=== PATIENT | male | born 1995 | race Asian ===

== ENCOUNTER 2023-07-10 17:43 | Emergency (ER) | payer OTHER ==
[2023-07-10 18:06] VITALS: BP 135/76; O2SAT 100
--- NOTE | 2023-07-10 18:41 | ED Physician Documentation ---
History of Present Illness - Stated complaint Stated Complaint: TOOTH ACHE - Chief complaint Chief Complaint: Heent - History obtained from History obtained from: Patient - History of Present Illness Pain level max: 9 Pain level now: 9 - Additonal information Additional information: Patient is a 27-year-old male who presents to the emergency department with a tooth ache worsening over the past several days. He states that he originally cracked the right upper molar about a month ago. Has an appointment with his dentist this week. He states that the pain started to increase about 2 days ago. No facial swelling. No fevers. No chills. No vomiting. No redness. No drainage. Worse with eating and drinking, nothing makes it better. Review of Systems Constitutional: denies: Fever, Chills GI: denies: Vomiting PD PAST MEDICAL HISTORY - Past Medical History Past Medical History: No - Past Surgical History Past Surgical History: Yes - Present Medications Home Medications: Ambulatory Orders Medication Instructions Recorded Confirmed HYDROcod/ACETAM 5/325 [[place] 5/325] 1 - 2 ea PO Q6H PRN #14 tablet 07/10/23 Penicillin V Potassium 500 mg PO Q6HR #40 tablet 07/10/23 - Allergies Allergies/Adverse Reactions: Allergies Allergy/AdvReac Type Severity Reaction Status Date / Time No Known Drug Allergies Allergy Verified 07/10/23 18:04 - Social History Does the pt smoke?: No Smoking Status: Never smoker Does the pt drink ETOH?: Yes ETOH Use: Liquor Does the pt have substance abuse?: No PD ED PE NORMAL - Vitals Vital signs reviewed: Yes - General General: Alert and oriented X 3, No acute distress - HEENT HEENT: Moist mucous membranes, Other (Right upper molar does show dental caries and a small area of cracked tooth. No gingival swelling. No abscess. Normal phonation. No trismus. No facial swelling. Otherwise normal intraoral exam) - Neck Neck: Supple, no meningeal sign - Cardiac Cardiac: RRR, Strong equal pulses - Respiratory Respiratory: No respiratory distress, Clear bilaterally - Derm Derm: Warm and dry - Neuro Neuro: Alert and oriented X 3 Results - Vitals Vitals: Vital Signs - 24 hr 07/10/23 17:56 Temperature 37.0 C Heart Rate 69 Respiratory 18 Rate Blood Pressure 135/76 H O2 Saturation 100 Oxygen O2 Source Room air PD Medical Decision Making - ED course Complexity details: reviewed results, re-evaluated patient, considered differential, d/w patient ED course: Patient with dental caries. Cavitt was placed over the open tooth. We will place on antibiotics and pain medications for home. No evidence of abscess, facial cellulitis. Normal phonation. No trismus. Patient will follow-up with his dentist this week. Patient counseled regarding signs and symptoms for which I believe and urgent re-evaluation would be necessary. Patient with good understanding of and agreement to plan and is comfortable going home at this time This document was made in part using voice recognition software. While efforts are made to proofread this document, sound alike and grammatical errors may occur. Departure - Departure Disposition: Home, Self Care Clinical Impression: Pain due to dental caries Condition: Good Instructions: ED Tooth Pain Follow-Up: JOSE SLATER MD [Primary Care Provider] - Prescriptions: Penicillin V Potassium 500 mg PO Q6HR #40 tablet HYDROcod/ACETAM 5/325 [[place] 5/325] 1 - 2 ea PO Q6H PRN #14 tablet PRN Reason: Pain Comments: Your prescriptions were sent to [facility] in [place]. Please take all antibiotics until gone. You can use the pain medication as needed for pain as well. The cavit can be placed over the open tooth which will often help with the pain. Please follow-up with your dentist as scheduled. Please return if you worsen. I am prescribing a short course of narcotic pain medication for you. These are potentially dangerous and addictive medications that should be used carefully. These medications may constipate you. Take an mqjp-fae-rjikezl stool softener (docusate) twice daily with plenty of water while taking these medications. If you go 24 hours without a bowel movement, take [id number] miralax, per package instructions. Do not drink or drive while taking these medications. If you received narcotic or sedating medications while in the emergency department, do not drive for 24 hours. Store this medication in a safe, secure place and out of reach of children. It is a violation of federal law to give or sell this medication to another person or to use in a manner other than prescribed. The ED will not refill narcotic prescriptions, including prescriptions lost or stolen. To dispose of unwanted medications: 1. [facility] at [address] in [place] has a medication drop box. They accept prescription medications (in pill form) Wednesday through Wednesday 9:00 a.m. to 5:00 p.m. 2. The [facility] [employer] accepts prescription medications (in pill form only) for disposal year round. Call for more information. 3. Contact the [facility] for the next [facility] sponsored prescription d rug collection event. , [phone], or [phone]; Forms: PCP List Discharge Date/Time: 07/10/23 18:44
== END 2023-07-10 18:44 | disposition home or self-care (01) ==
LOC: ED 17:43
DX: K02.9 Dental caries, unspecified (principal)
CPT/HCPCS: 99282; 99283